=== PATIENT | female | born 1990 | race Caucasian/White ===

== ENCOUNTER 2017-04-03 22:56 | Emergency (ER) | payer OTHER ==
[2017-04-04 03:34] LABS: HEMOGLOBIN 14.7 gm/dl (12.3-15.3); RED BLOOD COUNT 4.97 M/UL (4.00-5.10); WHITE BLOOD COUNT 6.5 K/UL (4.5-11.0)
[2017-04-04 03:46] LABS: BUN/CREATININE RATIO 16 (0-10)
== END 2017-04-04 05:05 | disposition home or self-care (01) ==
LOC: ER1 22:56
PROVIDERS: Physician Assistant
DX: N20.0 Calculus of kidney (principal); Z90.49 Acquired absence of other specified parts of digestive tract; Z88.5 Allergy status to narcotic agent
CPT/HCPCS: 36415; 80053; 81001; 84703; 85025; 96374; 96375; 99284; J2270; J2550